=== PATIENT | female | born 1990 | race Caucasian/White ===

== ENCOUNTER 2023-05-27 21:04 | Observation (INO) | payer OTHER, MEDICAID, SELFPAY ==
--- NOTE | 2023-05-27 21:26 | DI.US.S_ITS ---
PROCEDURE: US OB LIMITED INDICATIONS: BACK PAIN OUTSIDE/PRIOR DATING DATA: Last menstrual period (LMP): 09/29/2023. LMP-based estimated date of delivery (GRETCHEN): 07/06/2023. TECHNIQUE: Real-time scanning was performed of the fetus, with image documentation and biometric measurements. Biophysical profile was also obtained. COMPARISON: None available. FINDINGS: General: A single living intrauterine gestation is present. Presentation: Vertex. Placenta: Placental position is anterior, without previa. No periplacental fluid collections to suggest abruption. Amniotic fluid index: 7.8 cm, normal range is 5-24 cm. Single deepest vertical pocket is 3.0 cm. heart rate: 145 beats per minute. Maternal cervical canal: Not evaluated. Clinically estimated gestational age: 34 weeks 2 days No evidence of maternal hydronephrosis. IMPRESSION: 1. Single living intrauterine demonstrated in vertex presentation. 2. No periplacental fluid collections to suggest abruption. We strive to produce accurate, complete, and clear reports of imaging services. To assist us in improving patient care, this report was composed using standard report templates and voice recognition software. Therefore, it may contain abnormal punctuation, insertions and/or omissions. Occasional wrong-word or sound-alike substitutions may occur. Though we review the report and make efforts to correct it, we do recommend that the report be read carefully in proper context to recognize any text inaccuracies. Dictated by: Norm Hernandez M.D. on 05/28/2023 at 2:09 Approved by: Norm Hernandez M.D. on 05/28/2023 at 2:11
[2023-05-27 21:53] LABS: Appearance Urine UA CLEAR; Bilirubin Urine UA NEGATIVE (NEGATIVE); Color Urine UA YELLOW; Glucose Urine UA NEGATIVE (Negative); Ketones Urine UA NEGATIVE (NEGATIVE); Leukocyte Esterase Urine UA TRACE (NEGATIVE); Nitrite Urine UA NEGATIVE (Negative); Occult Blood Urine UA NEGATIVE (Negative); Protein Urine UA NEGATIVE (Negative); Urobilinogen Urine UA 0.2 E.U./dL (0.2)
[2023-05-27 21:54] LABS: pH Urine UA 7.5 (4.5-8.0)
[2023-05-27 22:00] LABS: Bacteria Urine Many (>30); Culture Indicated Urine Specimen Cultured; RBC Urine None Seen (0-5/HPF); Squamous Epithelial Cell Urine 0-1 /HPF (0-5/HPF); WBC Urine 0-1/HPF (0-5/HPF)
--- NOTE | 2023-05-27 22:04 | PM.OBTRLD ---
Visit Information Visit Information Date of evaluation: 05/27/23 On-call OB Provider: Abi Alfaro Reason for Evaluation: Yes pre-term labor Comments/Additional reasons for admission: Patient is a 32-year-old 3 para 3, , prior twin gestation with shortened cervix and emergency section EDC 07/06/2023 at 34 weeks, 5 days who presented to labor and delivery with sudden onset of severe right-sided flank pain. Vital Signs Vital Signs: Blood pressure 125/69, pulse 76, temperature 98? Review of Systems Review of Systems Narrative: Patient denies headaches, scotomata. No nausea or vomiting. Regular bowel movements. Patient was treated for urine burning 2 weeks ago with medication. No vaginal bleeding. Sudden onset of constant pain that increases with contractions seen on the monitor. No leakage of fluid. Patient noted decreased movement. Exam Narrative Exam Narrative: Patient is in apparent acute distress. HEENT exam within limits. No thyromegaly. Lungs are clear to auscultation percussion. Heart is regular rate and rhythm no S3-S4 murmurs. Abdomen is soft, nontender. Uterus is nontender. Contractions palpate mild/mod. Fetus is vertex. No CVA tenderness. Cervical exam closed, 50%,-2 station Objective Imaging US - abdomen: My impression: No evidence of abruption, normal STEWART, normal-appearing right kidney Labs 05/27/23 22:50 05/27/23 22:50 Labs: Laboratory Results - last 24 hr 05/27/23 21:45 Urine Color Yellow Urine Appearance Clear Urine pH 7.5 Ur Specific [place] 1.010 Urine Protein Negative Urine Glucose (UA) Negative Urine Ketones Negative Urine Occult Blood Negative Urine Nitrate Negative Urine Bilirubin Negative Urine Urobilinogen 0.2 Ur Leukocyte Esterase Trace H Urine RBC None seen Urine WBC 0-1/hpf Ur Squamous Epith Cells 0-1 /hpf Urine Bacteria Many (>30) H Ur Culture Indicated? Specimen cultured Evaluation Evaluation Baseline heart rate: 140 Variability: Moderate (11-25) monitor accelerations: Present Monitor Decelerations: Absent Contraction Frequency (minutes): 3 Uterine Contraction Intensity: Moderate Category of Tracing: Reactive Status: Category l Cervical dilation (cm): 0 Cervical effacement (%): 50 station: -2 Diagnosis, Plan/Disposition Final Diagnosis (1) 34 weeks gestation of : Status: Acute (2) Previous section complicating : Status: Acute (3) Premature uterine contractions causing threatened premature labor, antepartum: Status: Acute Plan/Disposition Plan: Patient given IV fluid bolus, nifedipine protocol. Patient continued uterine irritability but no further pain. Patient requested discharge. Precautions for return if increasing pain, vaginal bleeding, leakage of fluid. OB Disposition: home
[2023-05-27] MEDS: NIFEdipine 10 MG CAPSULE PO ×3 (22:59→23:40)
[2023-05-27] MEDS: fentaNYL 100 MCG/2 ML INJ 50 MCG IV (23:02)
[2023-05-27] MEDS: ONDANSETRON 4 MG/2 ML INJ IV (23:02)
[2023-05-27 23:16] LABS: Add Manual Diff / Slide Review NO; Basophils Absolute Auto 100 /uL (0-100); Basophils Percent Auto 0.5 % (0-2); Eosinophils Absolute Auto 100 /uL (0-450); Eosinophils Percent Auto 0.5 % (2-4); Hematocrit 35.2 % (36-46); Hemoglobin 11.8 g/dL (12.0-16.0); Lymphocytes Absolute Auto 2400 /uL (1100-4500); Lymphocytes Percent Auto 21.8 % (25-40); Mean Corpuscular HGB Conc 33.6 % (30-36); Mean Corpuscular Hemoglobin 28.4 PG (26-34); Mean Corpuscular Volume 84.5 fL (80-100); Monocytes Absolute Auto 700 /uL (0-900); Neutrophils Absolute Auto 7900 /uL (1500-7000); Neutrophils Percent Auto 71.2 % (50-75); Platelet Count 299 X10^3/uL (150-400); Red Blood Cell Count 4.17 X10^6/uL (4.0-5.2); Red Cell Distribution Width 15.4 % (11.6-14.8); White Blood Cell Count 11.1 X10^3/uL (4.5-11.0)
[2023-05-27 23:38] LABS: Alanine Aminotransferase 17 IU/L (<35); Albumin 3.4 g/dL (3.5-5.0); Alkaline Phosphatase 112 U/L (38-126); Aspartate Aminotransferase 28 IU/L (14-36); BUN Creatinine Ratio 22.9 (6-22); Bilirubin Total 0.4 mg/dL (0.2-1.3); Blood Urea Nitrogen 8 mg/dL (7-17); Calcium 8.6 mg/dL (8.4-10.2); Carbon Dioxide 20 mmol/L (22-32); Chloride 106 mmol/L (98-107); Estimated Glomerular Filt Rate > 60 mL/min (>60); Globulin 3.4 g/dL (1.7-4.1); Glucose 96 mg/dL (70-100); Potassium 4.3 mmol/L (3.4-5.1); Sodium 131 mmol/L (137-145); Total Protein 6.8 g/dL (6.3-8.2)
[2023-05-27 23:41] LABS: HEMOLYSIS 72 (0-50)
[2023-05-27 23:51] LABS: Fetal Fibronectin Negative
[2023-05-28] MEDS: NIFEdipine 10 MG CAPSULE PO
[2023-05-28] MEDS: CALCIUM CARBONATE 500 MG TAB 1000 MG PO (00:53)
[2023-05-28] MEDS: NIFEdipine 30 MG TAB ER PO (00:53)
[2023-05-28] MEDS: fentaNYL 100 MCG/2 ML INJ 50 MCG IV (00:56)
== END 2023-05-28 02:50 | disposition home or self-care (01) ==
PROVIDERS: Admitting Provider Specialist; Referring Provider Specialist; Visit Provider Specialist
DX: O60.03 Preterm labor without delivery, third trimester (principal); Z3A.34 34 weeks gestation of pregnancy
CPT/HCPCS: 59025; 59050; 76815; 80053; 81001; 82731; 85025; 87077; 87086; 87186; 96360; G0378; G0379; J2405; J3010